=== PATIENT | female | born 1980 ===

== ENCOUNTER 2025-08-29 13:36 | Emergency (ER) | payer MEDICAID ==
[~2025-08-29] VITALS: Ht 172.7 cm; Wt 91.0 kg
[2025-08-29 13:56] VITALS: O2SAT 100
[2025-08-29] MEDS: ACETAMINOPHEN 500MG TABLET PO ONE (15:00)
[2025-08-29] MEDS: IBUPROFEN 600MG TABLET PO ONE (15:00)
[2025-08-29 15:34] LABS: BASOPHILS % 0.4 % (0.0-2.0); EOSINOPHILS % 1.0 % (0.0-5.0); HEMATOCRIT. 34.7 % (36.0-48.0); HEMOGLOBIN. 10.8 g/dL (12.0-16.0); LYMPHOCYTES % 21.0 % (20.0-50.0); MEAN PLATELET VOLUME 8.7 fl (7.4-10.4); MONOCYTES % 7.0 % (2.0-8.0); NEUTROPHILS % 70.6 % (40.0-76.0); PLATELET 405 x1000/uL (130-400); RED BLOOD CELL COUNT 5.14 mill/uL (4.2-5.4); RED CELL DISTRIBUTION WIDTH 16.5 % (11.6-14.6)
[2025-08-29 15:35] LABS: ADD RBC MORPHOLOGY YES
[2025-08-29 16:09] LABS: CLARITY URINE CLEAR (CLEAR); COLOR URINE YELLOW (YELLOW); GLUCOSE URINE 3+ (NEGATIVE); KETONES URINE NEGATIVE (NEGATIVE); LEUKOCYTE ESTERASE URINE NEGATIVE (NEGATIVE); NITRITE URINE NEGATIVE (NEGATIVE); OCCULT BLOOD URINE NEGATIVE (NEGATIVE); PH URINE 5.5 (4.5-8.0); PROTEIN URINE NEGATIVE (NEGATIVE); SPECIFIC GRAVITY URINE 1.046 (1.005-1.030); UROBILINOGEN URINE 0.2 E.U./dL (0.2-1.0)
[2025-08-29 16:18] LABS: PLATELET ESTIMATE INCREASED
[2025-08-29 16:24] LABS: CREATININE 0.7 mg/dL (0.6-1.0)
[2025-08-29 16:25] LABS: UREA NITROGEN BLOOD 9 mg/dL (9-23)
[2025-08-29 16:26] LABS: ASPARTATE AMINOTRANSFERASE 14 IU/L (<34)
[2025-08-29 16:27] LABS: BILIRUBIN DIRECT < 0.1 mg/dL (<=3.0); BILIRUBIN TOTAL 0.4 mg/dL (0.1-1.0); PROTEIN TOTAL 7.6 g/dL (6.0-8.3)
[2025-08-29 16:31] LABS: BACTERIA URINE TRACE; RBC URINE NONE SEEN /hpf (0-2); SQUAMOUS EPITHELIAL CELL URINE FEW /lpf (RARE/1+); WBC URINE NONE SEEN /hpf (0-2)
[2025-08-29 17:09] LABS: INFLUENZA TYPE A Presumptive Negative (Pres. Neg.)
[2025-08-29 17:10] LABS: INFLUENZA TYPE B Presumptive Negative (Pres. Neg.)
[2025-08-29 17:11] LABS: RESPIRATORY SYNCYTIAL VIRUS Not Detected (Not Detectd)
[2025-08-29] MEDS ORDERED: BENZ100C86 MT (17:56)
[2025-08-29] MEDS ORDERED: TOPUD MT (17:56)
[2025-08-29] MEDS ORDERED: IBUP-2028 MT (17:56)
[2025-08-29] MEDS: INSULIN REGULAR (HUMULIN R) 1000UNITS/10ML VIAL IV ONE (18:13)
[2025-08-29] MEDS: SODIUM CHLORIDE 0.9% 500 ML IV ONE (18:14)
[2025-08-29 19:04] VITALS: BP 128/85; PULSE 84; RESP 16; TEMP 36.9; O2SAT 100
== END 2025-08-29 19:07 | disposition home or self-care (01) ==
LOC: ER 13:36
DX: R05.9 Cough, unspecified (principal); R09.81 Nasal congestion; E11.9 Type 2 diabetes mellitus without complications; Z20.822 Contact with and (suspected) exposure to COVID-19
CPT/HCPCS: 80076; 80048; 81003; 81025; 82962; 85025; 87420; 87804 ×2; 36415; 71045; 96374; 99284; 87426; J1815; J7040; Z7610 ×2